=== PATIENT | female | born 1955 | race Two or more races ===

== ENCOUNTER 2025-03-19 14:15 | Outpatient (REF) | payer MEDICARE, SELFPAY ==
--- OUTSIDE RECORDS SUMMARY | 2025-03-19 14:18 | XMS_ITS | Clinical Summary ---
Author Organization [facility] Address [address] [place] [address] Care Team Providers Care Soda Jerker Name Role Phone Faizan Nicole Primary Care Provider [phone] Source Comments PLEASE NOTE, if this patient is a minor, it may be UNLAWFUL to discuss sensitive information that is contained in these records (such as FAMILY PLANNING, MENTAL HEALTH or SUBSTANCE ABUSE) with the minor patient's parent or other person without the patient's specific authorization.[facility] Allergies Active Allergy Reactions Criticality Noted Date Comments Amoxicillin 10/05/2021 Azithromycin 10/05/2021 Codeine 10/05/2021 Hydromorphone 10/05/2021 Morphine 10/05/2021 Oxycodone 10/05/2021 Oxycodone-Acetaminophen 10/05/2021 Sulfamethoxazole-Trimethoprim 2021 Medications diclofenac sodium (VOLTAREN) 1 % gelIndications:Pr imary osteoarthritis of left knee Apply 2 g topically 2 (two) times daily 100 g 2 022 Active blood-glucose meter monitoring kitIndications:Ro utine general medical examination at a health care facility,Type 2 diabetes mellitus without complication, without long-term current use of insulin ([facility]) as needed for blood glucose monitoring 1 Each 024 Active lancets (FREESTYLE LANCETS) 28 gaugeIndications: Type 2 diabetes mellitus without complication, without long-term current use of insulin ([facility]) Check glucose once daily 100 Each 5 024 Active blood sugar diagnostic stripsIndications :Type 2 diabetes mellitus without complication, without long-term current use of insulin ([facility]) Use to test blood sugar once daily 100 Each 1 024 Active alcohol swabsIndications: Type 2 diabetes mellitus without complication, without long-term current use of insulin ([facility]) Daily glucose monitoring 100 Each 11 Active blood sugar diagnostic strips Use 1 Each as directed Active blood-glucose meter monitoring kit as needed for blood glucose monitoring 1 Each Active lancets 30 gaugeIndications: Stage 3b chronic kidney disease ([facility]),Type 2 diabetes mellitus without complication, without long-term current use of insulin ([facility]) CHECKS BLOOD SUGAR ONCE DAILY. 200 Each 2 Active ipratropium (ATROVENT) 21 mcg (0.03 %) nasal spray USE 2 SPRAYS IN BOTH NOSTRILS 3 TIMES DAILY 60 mL 5 024 Active myra.stocking, thigh,reg,medIndi cations:Periphera l edema Compression goal 15-20 mmHg. 4 Each 024 Active atorvastatin (LIPITOR) 20 mg tabletIndications :Mixed hyperlipidemia Take 1 Tablet by mouth once daily 100 Tablet 2 025 Active calcium carbonate-vitamin D3 600 mg-10 mcg (400 unit) tabletIndications :H/O osteopenia Take 1 Tablet by mouth 2 (two) times daily 180 Tablet 3 025 Active losartan (COZAAR) 100 mg tabletIndications :Essential hypertension,Type 2 diabetes mellitus without complication, without long-term current use of insulin ([facility]) TAKE 1 TABLET BY MOUTH EVERY DAY 90 Tablet 2 025 Active losartan-hydrochl orothiazide (HYZAAR) 100-12.5 mg per tabletIndications :Essential hypertension Take 1 Tablet by mouth once daily. 30 Tablet 2 025 Active pantoprazole (PROTONIX) 20 mg EC tabletIndications :Chronic GERD Take 1 Tablet by mouth every morning before breakfast TAKE 1 TABLET BY MOUTH EVERY MORNING BEFORE BREAKFAST!. 90 Tablet 1 025 Active levothyroxine 125 mcg tabletIndications :Acquired hypothyroidism Take 1 Tablet by mouth once daily TAKE 1 TABLET BY MOUTH 1 TIME EVERY DAY. 90 Tablet 1 025 Active dapagliflozin propanediol (FARXIGA) 5 mg tab Take 1 Tablet by mouth every morning. 90 Tablet 3 025 2025 Active metFORMIN XR (GLUCOPHAGE-XR) 500 mg 24 hr tabletIndications :Type 2 diabetes mellitus without complication, without long-term current use of insulin ([facility]) TAKE 2 TABLETS BY MOUTH ONCE DAILY WITH DINNER 180 Tablet 1 025 Active blood sugar diagnostic (ONETOUCH VERIO TEST STRIPS) strips USE TO TEST DAILY 100 Each 2 025 Active albuterol HFA 90 mcg/actuation inhalerIndication s:Mild intermittent asthma without complication ([facility]) INHALE 2 INHALATIONS BY MOUTH INTO THE LUNGS EVERY 4 TO 6 HOURS NEEDED FOR SHORTNESS OF BREATH OR WHEEZING 51 g 2 025 Active albuterol HFA 90 mcg/actuation inhalerIndication s:Mild intermittent asthma without complication ([facility]) Inhale 2 Puffs into the lungs every 4 to 6 (four to six) hours as needed for shortness of breath or wheezing 18 g 3 025 2024 Discontinued Active Problems Problem Noted Date Diagnosed Date Stage 3b chronic kidney disease ([facility]) 01/09/2022 History of laser refractive surgery 01/08/2022 Mild intermittent asthma without complication ([facility]) 11/19/2021 Age spots 11/19/2021 Prediabetes 11/19/2021 Essential hypertension 10/05/2021 History of hypothyroidism 10/05/2021 Chronic GERD 10/05/2021 Allergic rhinitis 10/05/2021 H/O osteopenia 10/05/2021 Obesity (BMI 30-39.9) 10/05/2021 Primary osteoarthritis of left knee 10/05/2021 Overview (01/09/2022): Knee 3 Views LeftResult date:12/24/2018 ils FINDINGS: Medial compartment joint space narrowing and osteophytes. Small osteophytes lateral compartment. Joint space narrowing and osteophytes patellofemoral compartment. IMPRESSION: Tricompartmental osteoarthritis is most significant within the medial and patellofemoral compartments. Encounters Date Type Department Care Team Description 01/20/2025 1:20 PM EDT Office Visit [address] [phone] Elvira Dunne RN 01/05/2025 3:00 PM EDT Office Visit [address] [address] Willie Chambers NP from Last 3 Months Immunizations Immunization Administration Dates Next Due Flu, High Dose, 65y+, Fluzon e High Dose 10/10/2023,06/17/2022,08/21/2021 Flu, Preservative Free 08/12/2016 Flu, Recombinant, 18y+, Flublok 06/03/2020 INFLUENZA, SEASONAL, INJECTABLE 07/01/20 19,06/25/2018,06/09/2014,06/23,06/19/2012,05/10/2011,09/14/2010 Influenza (FLUZONE), high-do se, trivalent, PF 05/27/2024 Influenza, Intradermal, Quad rivalent, Preservative Free 06/17/2017 PFIZER COVID VACCINE, PURPLE CAP, 12+ 06/26/2021 ,11/01/2020,10/11/2020 PNEUMOCOCCAL CONJUGATE PCV 13 12/23/2018 PNEUMOCOCCAL POLYSACCHARIDE PPV23 (Pneumovax 23) 08/21/2021,06/23/2013 RSV (Arexvy), Recombinant, P rotein Subunit Rsvpref, Adjuvant Reconstituted, 0.5 Ml, Pf 11/12/2024 TDAP 09/27/2022,05/04/2010 Td (adult),2 Lf tetanus toxo id (TDVAX), preservative free 01/30/2000 ZOSTER VACCINE, RECOMBINANT (SHINGRIX) 0,06/03/2020 Zoster, Live Vaccine (Zostavax) 08/04/2020 Social History Tobacco Use Types Packs/Day Years Used Date Smoking Tobacco: Never Smokeless Tobacco: Never Tobacco Cessation:Counseling Given: Not Answered Alcohol Use Standard Drinks/Week Comments Never 0 (1 standard drink = 0.6 oz pur e alcohol) Social Connections Answer Date Recorded Connectedness 0 09/27/2022 Financial Resource Strain Answer Date R ecorded Financial Resource Strain 0 2022 Stress Answer Date Recorded Stress 0 09/27/2022 Physical Activity Answer Date Recorded Physical Activity 0 10/05/2021 Food Insecurity Answer Date Recorded Food 0 09/27/2022 Transportation Needs Answer Date Record ed Transportation 0 09/27/2022 Housing Stability Answer Date Recorded Housing 0 09/27/2022 Safety and Environment Answer Date Mumtaz rded Safety 0 09/27/2022 Utilities Answer Date Recorded Utilities 0 09/27/2022 Employment Answer Date Recorded Stress 0 09/27/2022 Comments No Sex and Gender Information Value Date Recorded Sex Assigned at Female 10/05/2021 12:17 PM PST Legal Sex Female 7:35 AM PDT Gender Identity Female 10/05/2021 12:17 PM PST Sexual Orientation Straight 10/05/2021 12 :17 PM PST Last Filed Vital Signs Vital Sign Reading Time Taken Comments Blood Pressure 138/78 01/20/2025 1:57 PM EDT Pulse 68 01/20/2025 1:56 PM EDT Temperature 36.8 C (98.3 F) 01/05/2025 3:03 PM EDT Respiratory Rate 16 01/05/2025 3:03 PM EDT Oxygen Saturation 98% 01/20/2025 1:56 PM EDT Inhaled Oxygen Concentration - - Weight 91.6 kg (202 lb) 01/05/2025 3:03 PM EDT Height 157.5 cm (5' 2 ) 01/05/2025 3:03 PM EDT Body Mass Index 36.95 01/05/2025 3:03 PM EDT Plan of Treatment Health Maintenance Due Date Last Done Comments Dental Examination 1955 Retinopathy Screening 1966 Medicare Annual Wellness Visit 12/16/1971 CT Colonography 1998 FIT/gFOBT 1998 Fecal DNA 1998 Flexible Sigmoidoscopy 1998 Falls Prevention 12/07/2023 12/06/2022 [id number] ( season) 2024 06/29/2022, 06/26/2021, 11/01/2020, Additional history exists Imm-Influenza (#1) 2025 05/27/2024, 0 10/10/2023, 06/17/2022, Additional history exists Hemoglobin A1c 06/02/2025 12/01/2024, 0901/2024, 12/30/2023, Additional history exists Breast Cancer Screening (Mammogram) 10/31/2025 11/01/2023, 10/29/2022, 10/28/2021 Lipid Screening 12/01/2025 12/01/2024, 01/2024, 06/28/2022 Serum Creatinine 12/01/2025 12/01/2024, 01/2024, 06/28/2022 TSH Monitoring 12/01/2025 12/01/2024, 0 01/2024, 01/24/2022 Diabetes Foot Exam 01/05/2026 01/05/2025, 12/23/2023 Tobacco Screening 01/05/2026 01/05/2025, 09/27/2022 Urine Albumin Creatinine Rat io Screening 01/20/2026 01/20/2025, 12/30/2023 Colonoscopy 10/06/2030 10/06/2020 Colorectal Cancer Screening 10/06/2030 Imm-DTaP/Tdap/Td (3 - Td or Tdap) 09/27/2032 09/27/2022, 05/04/2010, 01/30/2000 Imm-Zoster, Recombinant Completed 08/04/20, 08/04/2020, 06/03/2020 Imm-Pneumococcal 50+ Completed 08/21/2021, 12/23/2018, 06/23/2013 Bone Density Screening Completed 06/06/2022, 2021 Hepatitis C Screening Completed 06/28/2022 Alcohol and Drug Screen Completed 01/06/20, 10/10/2023, 09/27/2022, Additional history exists Depression Annual Screen Completed 01/05/2025 Procedures Procedure Name Priority Date/Time Associated Diagnosis Comments MICROALBUMIN/CREATININ E RATIO, URINE, RANDOM Routine 01/20/2025 1:56 PM EDT Type 2 diabetes mellitus with other specified complication, without long-term current use of insulin ([facility]) TSH W/RFLX FREE T4 Routine 12/01/2024 8: 45 AM EDT Essential hypertension History of hypothyroidism Obesity (BMI 30-39.9) Prediabetes Stage 3b chronic kidney disease ([facility]) Peripheral edema COMPREHENSIVE METABOLIC PANEL Routine 12/01/2024 8:45 AM EDT Essential hypertension History of hypothyroidism Obesity (BMI 30-39.9) Prediabetes Stage 3b chronic kidney disease ([facility]) Peripheral edema LIPID PANEL Routine 12/01/2024 8:45 AM EDT Essential hypertension History of hypothyroidism Obesity (BMI 30-39.9) Prediabetes Stage 3b chronic kidney disease ([facility]) Peripheral edema HGBA1C W/MPG Routine 12/01/2024 8:45 AM EDT Essential hypertension History of hypothyroidism Obesity (BMI 30-39.9) Prediabetes Stage 3b chronic kidney disease ([facility]) Peripheral edema HISTORIC MAMMOGRAM 11/01/2023 3: 00 AM EST HEPATITIS C AB W/RFLX HCV RNA, QT, RT PCR Routine 06/28/2022 8:41 AM EDT Encounter for screening for viral disease DXA BONE DENSITY STUDY 1/> SITES AXIAL SKEL Routine 06/06/2022 3:00 AM EDT Post-menopausal HISTORIC COLONOSCOPY 10/06/2020 3:00 AM EST from Last 3 Months or Most Recently Relevant to Health Maintenance Results * MICROALBUMIN/CREATININE RATIO, URINE, RANDOM Urine Routine (01/20/2025 1:56 PM EDT) CREATININE, RANDOM URINE 59 20 - 275 mg/dL [facility] MICROALBUMIN 1.6 mg/dL [employer] [facility] Comment: Reference Range Not established MICROALBUMIN/CREA TININE RATIO, RANDOM URINE 27 <30 mg/g creat [facility] Comment: The ADA defines abnormalities in albumin excretion as follows: Albuminuria Category Result (mg/g creatinine) Normal to Mildly increased <30 Moderately increased 30-299 Severely increased > OR = 300 The ADA recommends that at least two of three specimens collected within a 3-6 month period be abnormal before considering a patient to be within a diagnostic category. Urine Urine specimen / Unknown 01/20/2025 1:56 PM EDT 01/20/2025 1:56 PM EDT us Willie Chambers [facility] URINE AMBULATORY Final Resu lt Performing Organization Address [facility] Co de Phone Number [employer] [address] [address], [employer] [address] [address] * (ABNORMAL) HGBA1C W/MPG (12/01/2024 8:45 AM EDT) HEMOGLOBIN A1C 6.6(H) <5.7 % of total Hgb [facility] Comment: For someone without known diabetes, a hemoglobin A1c value of 6.5% or greater indicates that they may have diabetes and this should be confirmed with a follow-up test. For someone with known diabetes, a value <7% indicates that their diabetes is well controlled and a value greater than or equal to 7% indicates suboptimal control. A1c targets should be individualized based on duration of diabetes, age, comorbid conditions, and other considerations. Currently, no consensus exists regarding use of hemoglobin A1c for diagnosis of diabetes for children. MEAN PLASMA GLUCOSE 158 mg/dL (calc) [employer] Blood Blood / Unknown 12/01/2024 8 :45 AM EDT 12/01/2024 8:51 AM EDT [facility] - BLOOD DRAW Final Result Performing Organization Address [facility] Co de Phone Number [employer] [address] [address], [employer] [address] [address] * TSH W/RFLX FREE T4 (12/01/2024 8:45 AM EDT) TSH W/REFLEX TO FT4 1.59 0.40 - 4.50 mIU/L [facility] Blood Blood / Unknown 12/01/2024 8 :45 AM EDT 12/01/2024 8:51 AM EDT us Faizan [facility] - BLOOD DRAW Edited Result - Final [facility] [address] [address], [facility] [address] [place] [address] * LIPID PANEL (12/01/2024 8:45 AM EDT) CHOLESTEROL, TOTAL 148 <200 mg/dL [facility] HDL CHOLESTEROL 65 > OR = 50 mg/dL [facility] TRIGLYCERIDES 99 <150 mg/dL [facility] LDL-CHOLESTEROL 65 99 mg/dL (calc) [facility] Comment: Reference range: <100 Desirable range <100 mg/dL for primary prevention; <70 mg/dL for patients with CHD or diabetic patients with > or = 2 CHD risk factors. LDL-C is now calculated using the Reggie calculation, which is a validated novel method providing better accuracy than the Friedewald equation in the estimation of LDL-C. Jace ASENCIO et al. THANIA. 2013;310(19): 7910-8234 (http://education.Driftrock/faq/FPL988) CHOL/HDLC RATIO 2.3 <5.0 (calc) [facility] NON-HDL CHOLESTEROL 83 <130 mg/dL (calc) [facility] Comment: For patients with diabetes plus 1 major ASCVD risk factor, treating to a non-HDL-C goal of <100 mg/dL (LDL-C of <70 mg/dL) is considered a therapeutic option. Blood Blood / Unknown 12/01/2024 8 :45 AM EDT 12/01/2024 8:51 AM EDT [facility] - BLOOD DRAW Final Result Performing Organization Address City/[facility]/ZIP Co de Phone Number [employer] [address] [address], [employer] [address] [place] [address] * (ABNORMAL) COMPREHENSIVE METABOLIC PANEL (12/01/2024 8:45 AM EDT) GLUCOSE 127(H) 65 - 99 mg/dL [facility] Comment: Fasting reference interval For someone without known diabetes, a glucose value >125 mg/dL indicates that they may have diabetes and this should be confirmed with a follow-up test. UREA NITROGEN (BUN) 24 7 - 25 mg/dL [facility] CREATININE (blood) 0.90 0.60 - 1.00 mg/dL [facility] EGFR 69 > OR = 60 mL/min/1. 73m2 [facility] BUN/CREATININE RATIO SEE NOTE: [facility] Comment: Not Reported: BUN and Creatinine are within reference range. SODIUM 142 135 - 146 mmol/L [facility] POTASSIUM 4.8 3.5 - 5.3 mmol/L [employer] [employer] CHLORIDE 105 98 - 110 mmol/L [facility] CARBON DIOXIDE 28 20 - 32 mmol/L [facility] CALCIUM 9.8 8.6 - 10.4 mg/dL [facility] PROTEIN, TOTAL 7.6 6.1 - 8.1 g/dL [facility] ALBUMIN 4.4 3.6 - 5.1 g/dL [facility] GLOBULIN 3.2 1.9 - 3.7 g/dL (calc) [facility] ALBUMIN/GLOBULI N RATIO 1.4 1.0 - 2.5 (calc) [facility] BILIRUBIN, TOTAL 0.7 0.2 - 1.2 mg/dL [facility] ALKALINE PHOSPHATASE 63 37 - 153 U/L [facility] AST 18 10 - 35 U/L [facility] ALT 23 6 - 29 U/L [facility] Blood Blood / Unknown 12/01/2024 8 :45 AM EDT 12/01/2024 8:51 AM EDT us Faizan [facility] - BLOOD DRAW Edited Result - Final [employer] [address] [address], [employer] [address] [address] * HISTORIC MAMMOGRAM (11/01/2023 3:00 AM EST) 11/01/2023 3:00 AM EST us Faizan [facility] IMG MAMMO Edited Result - Final * HEPATITIS C AB W/RFLX HCV RNA, QT, RT PCR (06/28/2022 8:41 AM EDT) HEPATITIS C ANTIBODY NON-REACT PAU NON-REACT PAU [facility] SIGNAL TO CUT-OFF 0.03 <1.00 [facility] Comment: HCV antibody was non-reactive. There is no laboratory evidence of HCV infection. In most cases, no further action is required. However, if recent HCV exposure is suspected, a test for HCV RNA (test code 05097) is suggested. For additional information please refer to http://education.onkea/faq/LTK81b6 (This link is being provided for informational/ educational purposes only.) Blood Blood / Unknown 06/28/2022 8 :41 AM EDT 06/28/2022 8:42 AM EDT Genny AMARAL-C LAB - BLOOD DRAW Edited Result - Final [employer] [address] [address], [employer] [address] [address] * DXA BONE DENSITY STUDY 1/> SITES AXIAL SKEL (06/06/2022 3:00 AM EDT) 06/06/2022 3:00 AM EDT Genny JINP-C IMG DXA Edited R esult - Final * HISTORIC COLONOSCOPY (10/06/2020 3:00 AM EST) 10/06/2020 3:00 AM EST Genny Keith BOSOM PRESSER-C PROCEDURES Final Re sult from Last 3 Months or Most Recently Relevant to Health Maintenance Insurance [employer] MEDICARE COMPLETE [employer] Member Subscriber Plan / Payer (Ef fective 2020-Present) Name:Rosie Sher Relation to Subscriber:Self Name:Rosie Sher Payer ID:[id number] (NAIC) Type:PPO Address: [place] [id number] Care Teams Soda Jerker Relationship Specialty Start Date End Date Faizan Nicole PA [address] [place] [address] PCP - General FAMILY MEDICINEBARRON 09/10/22
--- OUTSIDE RECORDS SUMMARY | 2025-03-19 14:19 | XMS_ITS | Clinical Summary ---
Author Organization [address] [place] [address] Address [address] [place] [address] Phone Care Team Providers Care District Administrator Name Role Phone Janna Jeane Lion [employer] Primary Care Provider [phone] Allergies Active Allergy Reactions Criticality Noted Date Comments Amoxicillin 07/06/2022 Amoxil Azithromycin 07/06/2022 zithromax Codeine 07/06/2022 Hydromorphone 07/06/2022 Morphine 07/06/2022 Oxycodone 07/06/2022 Percocet [Apap-fd&c Blue #1-oxycodone] Sulfamethoxazole-Trimethoprim 2021 Bactrim [Na Benzoate-sulfamethoxazo le-trimethoprim] Medications AMLODIPINE-ATOR VASTATIN ORAL Take by mouth. A ctive cetirizine (ZyrTEC) 10 mg tablet Take 1 Tablet by mouth daily. Active ipratropium HFA (ATROVENT HFA) 17 mcg/actuation inhaler Inhale 2 Puffs into the lungs every 6 hours. Active levothyroxine sodium (TIROSINT) 125 mcg capsule Take by mouth. Act jackeline lisinopril (PRINIVIL,ZESTR IL) 40 mg tablet Take 1 Tablet by mouth daily. Active metFORMIN (GLUCOPHAGE) 500 mg tablet Take 1 Tablet by mouth 2 times daily (with meals). Active pantoprazole (PROTONIX) 20 mg EC tablet Take 1 Tablet by mouth daily. Active hyaluronate sodium, stabilized 60 mg/3 mL syringe intra-articular injection Inject 60 mg into the articular space Once for 1 day. INJECT ONE PRE-FILLED SYRINGE TO LEFT KNEE ONCE. Active atorvastatin (LIPITOR) 10 mg tablet Take 1 tablet (10 mg total) by mouth 1 (one) time each day. Active losartan-hydroC HLOROthiazide (HYZAAR) 100-12.5 mg per tablet Take 1 tablet by mouth daily. 5 Active Jardiance 10 mg tablet Take 1 tablet (10 mg total) by mouth 1 (one) time each day. 5 Active Encounters Date Type Department Care Team Description 01/27/2025 9:30 AM EDT Office Visit Orthopedic Surgery - [address] [facility] [address] [place] [address] Daria De Anda PA Primary osteoarthritis of left knee (Primary Dx); Chronic knee pain, unspecified laterality; Degenerative tear of left medial meniscus from Last 3 Months Medical History Medical History Date Comments Prediabetes DX:Prediabetes Hypothyroidism DX:Hypothyroidis m Essential (primary) hypertension DX:Essential (primary) hypertension Osteopenia DX:Osteopenia CKD (chronic kidney disease) , stage III (CMS/HCC V24, CMS/HCC V28) DX:CKD (chronic kidney dise ase), stage III ([facility]) GERD (gastroesophageal reflux disease) DX:GERD (gastroesophageal reflux disease) Mild intermittent asthma, uncomplicated DX:Mild intermittent asthma, uncomplicated Social History Tobacco Use Types Packs/Day Years Used Date Smoking Tobacco: Never Smokeless Tobacco: Never Alcohol Use Standard Drinks/Week Comments Never 0 (1 standard drink = 0.6 oz pur e alcohol) Comments Unknown Sex and Gender Information Value Date Recorded Sex Assigned at Not on file Legal Sex Female 4:31 PM EST Gender Identity Not on file Sexual Orientation Not on file Obstetrics History Last Filed Vital Signs Vital Sign Reading Time Taken Comments Blood Pressure 140/90 07/06/2022 10:49 AM EDT Si tting R Arm Pulse 80 07/06/2022 10:49 AM EDT Temperature - - Respiratory Rate - - Oxygen Saturation - - Inhaled Oxygen Concentration - - Weight 95.3 kg (210 lb) 07/27/2024 1:14 PM EST Height 157.5 cm (5' 2 ) 07/27/2024 1:14 PM EST Body Mass Index 38.41 07/27/2024 1:14 PM EST Plan of Treatment Health Maintenance Due Date Last Done Comments Breast Cancer Screening 1955 Diabetes: Annual Foot Exam 12/16/1963 Diabetes: Annual Retina Eye Exam 12/16/1963 Colorectal Cancer Screening: Colonoscopy 08/01/2022 Falls Risk Assessment 08/01/2022 Medicare Annual Wellness Visit 08/01/2022 Social Influencers of Health Screening 08/01/2022 COVID-19 Vaccine ( season) 2024 06/29/2022, 06/26/2021, 11/01/2020, Additional history exists Influenza Vaccine (#1) 2025 , 10/10/2023, 06/17/2022, Additional history exists Diabetes: Blood Sugar Control Test (HGBA1C) 06/02/2025 12/01/2024, 05/27/2024 Diabetes: Annual GFR (Glomerular Filtration Rate) 12/01/2025 12/01/2024, 10/07/2023 Hypertension/CHF/CAD Annual BMP Blood Test 12/01/2025 12/01/2024, 10/07/2023 Depression Screening 01/05/2026 01/05/2025 Diabetes: Annual Urine Albumin-Creatinine Ratio (uACR) 01/20/2026 01/20/2025, 12/30/2023 Cholesterol Screening (Lipid Panel) 12/01/2029 12/01/2024, 12/01/2024, 10/07/2023, Additional history exists Osteoporosis Screening (Bone Density Screening) 06/06/2032 06/06/2022, 06/06/2022 DTaP,Tdap,and Td Vaccines (4 - Td or Tdap) 09/27/2032 09/27/2022, 05/04/2010, 01/30/2000 Zoster Vaccines Completed 08/04/2020, 11/2019, 06/03/2020, Additional history exists Pneumococcal Vaccine: 50+ Years Completed 08/21/2021, 12/23/2018, 06/23/2013 Hepatitis C Screening Completed 06/28/2022 RSV Immunization Adult Patients Completed 11/12/2024 HIB Vaccines Aged Out No longer eligi ble based on patient's age to complete this topic HPV Vaccines Aged Out No longer eligi ble based on patient's age to complete this topic Hepatitis A Vaccines Aged Out No long er eligible based on patient's age to complete this topic Hepatitis B Vaccines Aged Out No long er eligible based on patient's age to complete this topic IPV Vaccines Aged Out No longer eligi ble based on patient's age to complete this topic MMR Vaccines Aged Out No longer eligi ble based on patient's age to complete this topic Meningococcal ACWY Vaccine Aged Out N o longer eligible based on patient's age to complete this topic Meningococcal B Vaccine Aged Out No l onger eligible based on patient's age to complete this topic RSV Immunization Patients Under 20 months Aged Out No longer eligible based on patient's age to complete this topic Varicella Vaccines Aged Out No longer eligible based on patient's age to complete this topic Procedures Procedure Name Priority Date/Time Associated Diagnosis Comments [facility] DEXA AXIAL SKELETON Routine 06/06/2022 3:27 PM EDT Encounter for screening for osteoporosis from Last 3 Months or Most Recently Relevant to Health Maintenance Results * [facility] DEXA AXIAL SKELETON (06/06/2022 3:27 PM EDT) Anatomical Region Laterality Modality Mammography 06/06/2022 8:32 AM EDT Narrative 06/06/2022 3:[address] [facility] Diagnostic Imaging Department [address] [place] [address] Patient: NIKKYROSIE /Age/Sex: 1955 - 66 - F Unit#: [id number] Location/Status: SPDIMAM/REG CLI Mnemonic/Ordering Site: MAMDEXAAX/SPMAM Ordering Physician: ALIA VU [facility] Dexa Axial Skeleton - 06/06/22911 History: Low estrogen state due to menopause. Findings: Bone densitometry is performed utilizing dual energy x-ray absorptiometry (DXA) in the [employer] unit. The lumbar spine and proximal femora are evaluated in the AP projection. The FRAX questionaire was completed. The results indicate low bone mass (osteopenia), with a lumbar spine T-score of -1.5. The Z score is -0.8, indicating the patient's bone mineral density is within normal limits relative to age. The detailed DEXA report will be mailed to the referring physician's office. [employer]em[employer] FRAX: 10-year Probability of Fracture: Major Osteoporotic 6.9 percent Hip 0.5 percent. IMPRESSION: Osteopenia. [id number] Dictating Physician: MUNA BRINK MD Electronically Signed by: MUNA BRINK MD Dic Date/Time: 06/06/221525 Sign date/Time: 06/06/221526 Procedure Note Muna Brink MD - 08/22/2022 [facility] Diagnostic Imaging Department [address] [place] [address] Patient: ROSIE SHER D.O.B./Age/Sex: 1955 - 66 - F Unit#: [id number] Location/Status: SPDIMAM/REG CLI Mnemonic/Ordering Site: [facility] Ordering Physician: ALIA VU [facility]ash[facility] Dexa Axial Skeleton - 06/06/22911 History: Low estrogen state due to menopause. Findings: Bone densitometry is performed utilizing dual energy x-ray absorptiometry(DXA) in the [employer] unit. The lumbar spine and proximal femora areevaluated in the AP projection. The FRAX questionaire was completed. The results indicate low bone mass (osteopenia), with a lumbar spineT-score of -1.5. The Z score is -0.8, indicating the patient's bone mineral densityis within normal limits relative to age. The detailed DEXA report will bemailed to the referring physician's office. [employer]em[employer] FRAX: 10-year Probability of Fracture: Major Osteoporotic 6.9percent Hip 0.5 percent. IMPRESSION: Osteopenia. [id number] Dictating Physician: MUNA BRINK MD Electronically Signed by: MUNA BRINK MD Dic Date/Time: 06/06/22 152 Sign date/Time: 06/06/221526 Alia AMARAL IM BI PROCEDURES Final Re sult from Last 3 Months or Most Recently Relevant to Health Maintenance Insurance [employer] Care Teams District Administrator Relationship Specialty Start Date End Date Jeane Saldivar FNP [address] [place] [address] PCP - General 05/28/22
== END 2025-03-19 14:16 | disposition home or self-care (01) ==
LOC: HO.MAMMO 14:15
PROVIDERS: PCP Physician Assistant
DX: Z12.31 Encounter for screening mammogram for malignant neoplasm of breast (principal)
CPT/HCPCS: 77063; 77067

== ENCOUNTER → 2025-03-19 16:15 | Outpatient (BNV) | payer MEDICARE, SELFPAY | PROVIDERS: PCP Physician Assistant; Visit Provider Radiology Body Imaging | DX: Z12.31 Encounter for screening mammogram for malignant neoplasm of breast (principal) | CPT/HCPCS: 77063; 77067 ==